=== PATIENT | male | born 1980 | race Caucasian/White ===

== ENCOUNTER → 2020-04-03 | Outpatient (CLI) | payer BC ==
[~2020-04-03] MED LIST: PROTONIX 40MG T40 MG PO
== END ==
LOC: COL.RAD 15:21
DX: K57.30 Diverticulosis of large intestine without perforation or abscess without bleeding (principal)
CPT/HCPCS: Q9967

== ENCOUNTER → 2020-07-24 | Outpatient (CLI) | payer BC | LOC: COL.RAD | DX: K57.92 Diverticulitis of intestine, part unspecified, without perforation or abscess without bleeding (principal) | CPT/HCPCS: Q9967 ==